=== PATIENT | male | born 1975 | race Caucasian/White ===

== ENCOUNTER 2017-07-21 01:41 | Emergency (ER) | payer OTHER ==
[~2017-07-21] VITALS: Ht 180.3 cm; Wt 86.2 kg
--- NOTE | 2017-07-21 01:50 | NUR ---
To bed 7 a 41 yo male bb self with c/o dog bite on multiple sites of the bilat extremities. Mild bleeding noted. VSS. afebrile. nondiaphoretic. comfort measures rendered. initial wound care done.
--- NOTE | 2017-07-21 01:54 | NUR ---
Dr Franklin at bedside to eval.
[2017-07-21] MEDS ORDERED: TDAP [DIPH/PERTUSSIS/TET] 0.5 ML VIAL IM ONE ×2 (02:00→02:11)
[2017-07-21] MEDS ORDERED: IBUPROFEN 400 MG TABLET PO ONE (02:00)
[2017-07-21] MEDS ORDERED: IBUPROFEN 400 MG TABLET ONE (02:11)
--- NOTE | 2017-07-21 02:40 | NUR ---
wound care done per Dr Franklin's verbal instructions.
--- NOTE | 2017-07-21 02:48 | NUR ---
Patient discharged to home in stable condition. Written and verbal after care instructions given. Patient verbalizes understanding of instruction. Patient is ambulatory with steady gait, no further complaints.
[2017-07-21 02:49] VITALS: BP 135/86
== END 2017-07-21 02:49 | disposition home or self-care (01) ==
LOC: ER 01:46
DX: S51.802A Unspecified open wound of left forearm, initial encounter (principal); S51.801A Unspecified open wound of right forearm, initial encounter; W54.0XXA Bitten by dog, initial encounter; Y93.89 Activity, other specified; Y92.89 Other specified places as the place of occurrence of the external cause; Y99.9 Unspecified external cause status
CPT/HCPCS: 73090-TC; 90715; A4606; A6402; Z7610